=== PATIENT | female | born 1990 | race Caucasian/White ===

== ENCOUNTER 2016-08-21 21:50 | Emergency (ER) | payer OTHER ==
[~2016-08-21] VITALS: Ht 160 cm; Wt 70.1 kg
[~2016-08-21 21:50] MED LIST: ANTABUSE250 MG PO; BUSPAR10 MG PO; CHLORASEPTIC177 ML MM; DIFLUCAN150 MG PO; IRON18 MG PO; LAMICTAL25 MG PO; LEXAPRO20 MG PO; LIBRIUM25 MG PO; MUCINEX600 MG PO; MULTIVITAMIN1 EAC2 PO; PROBIOTIC1 EAC1 PO; PROPRANOLOL HCL10 MG PO; PROZAC20 MG PO; ROBITUSSIN100 MG/5 M PO; SEROQUEL100 MG PO; STRATTERA60 MG PO; TRAZODONE HCL150 MG PO; TRAZODONE HCL50 MG PO; VYVANSE60 MG PO; ZITHROMAX Z-PA250 MG PO; ZOFRAN ODT4 MG PO
[2016-08-21 22:46] LABS: HEMATOCRIT 38.3 % (36.0-46.0); MCH 31.5 PG (29.0-34.0); MCHC 33.7 G/DL (30.0-36.0); MCV 93.6 FL (83-99); MEAN PLAT.VOLUME 9.2 uM^3 (9.5-12.4); PLATELET COUNT 284 K/uL (156-360); RBC DIS.WIDTH-CV 11.9 % (11.8-14.6); RBC DIS.WIDTH-SD 39.8 % (39-53); RED BLOOD COUNT 4.09 M/uL (3.80-5.20); WHITE BLOOD COUNT 6.7 K/uL (4.1-10.2)
[2016-08-21 22:59] LABS: CHLORIDE 106 mEq/L (99-109); POTASSIUM 4.1 mEq/L (3.7-5.4); SODIUM 140 mEq/L (136-147)
[2016-08-21 23:01] LABS: GLUCOSE 108 mg/dL (70-99)
[2016-08-21 23:02] LABS: ANION GAP 10 MEQ/L (2-14)
[2016-08-21 23:04] LABS: GFR ESTIMATE (CALCULATED) > 59 mL/min/; SERUM ETHYL ALCOHOL < 10 mg/dL
[2016-08-21 23:06] LABS: UREA NITROGEN (BUN) 15 mg/dL (9-23)
[2016-08-21 23:08] LABS: SALICYLATE < 5.0 MG/DL (15-30)
[2016-08-21 23:10] LABS: ADD MIUA? YES; BILIRUBIN NEGATIVE; BLOOD NEGATIVE; COLOR YELLOW ((YELLOW)); GLUCOSE (STRIP) NEGATIVE; KETONES NEGATIVE; LEUKOCYTES MODERATE; NITRITE NEGATIVE; PROTEIN (STRIP) NEGATIVE; SPECIFIC GRAVITY 1.016 (1.000-1.030); UROBILINOGEN 0.2 MG/DL (0.2-1.0)
[2016-08-21 23:15] LABS: QUANTITATIVE HCG < 4.0 MIU/ML
[2016-08-21 23:23] LABS: AMPHETAMINE PRESUMPTIVE POSITIVE (500 ng/mL); COCAINE NEGATIVE (150 ng/mL); METHAMPHETAMINE NEGATIVE (500 ng/mL); OPIATES (MORPHINE) NEGATIVE (100 ng/mL); PHENCYCLIDINE NEGATIVE (25 ng/mL); THC CANNABINOIDS NEGATIVE (50 ng/mL)
[2016-08-21 23:24] LABS: ADD MEDTOX COMMENT Y; BARBITURATES NEGATIVE (200 ng/mL); BENZODIAZEPINES NEGATIVE (150 ng/mL); INTERNAL CONTROLS VALID? YES; METHADONE NEGATIVE (200 ng/mL); OXYCODONE NEGATIVE (100 ng/mL); PROPOXYPHENE NEGATIVE (300 ng/mL); TRICYCLIC ANTIDEPRESSANTS NEGATIVE (300 ng/mL)
[2016-08-21 23:37] LABS: BACTERIA RARE /HPF; EPITHELIAL CELLS 2+ /HPF; MUCUS NONE SEEN /LPF; RED BLOOD CELLS 0-5 /HPF (0-5); UCUL ADDED? NO; WHITE BLOOD CELLS 0-5 /HPF (0-5)
[2016-08-22] MEDS ORDERED: BUPROPION HCL150 M2 PO (00:27)
[2016-08-22 01:16] VITALS: BP 142/93
== END 2016-08-22 01:17 | disposition home or self-care (01) ==
LOC: EME 21:50
DX: F32.9 Major depressive disorder, single episode, unspecified (principal); T48.3X1A Poisoning by antitussives, accidental (unintentional), initial encounter; F41.1 Generalized anxiety disorder; F50.2 Bulimia nervosa; F90.2 Attention-deficit hyperactivity disorder, combined type; Z72.0 Tobacco use
CPT/HCPCS: 80048; 81003; 84702; 84999; 85027; 90839; 93005; 99281; 99284; G0480

== ENCOUNTER 2016-10-22 03:31 | Emergency (ER) | payer OTHER ==
[~2016-10-22] VITALS: Ht 160 cm; Wt 75.2 kg
[~2016-10-22 03:31] MED LIST changes: +BUPROPION HCL150 M2 PO
[2016-10-22] MEDS ORDERED: ZOFRAN4 MG PO (03:53)
[2016-10-22 04:26] LABS: HEMATOCRIT 35.9 % (36.0-46.0); MCH 30.9 PG (29.0-34.0); MCHC 33.7 G/DL (30.0-36.0); MCV 91.6 FL (83-99); MEAN PLAT.VOLUME 8.9 uM^3 (9.5-12.4); PLATELET COUNT 269 K/uL (156-360); RBC DIS.WIDTH-CV 11.9 % (11.8-14.6); RBC DIS.WIDTH-SD 39.7 % (39-53); RED BLOOD COUNT 3.92 M/uL (3.80-5.20); WHITE BLOOD COUNT 10.1 K/uL (4.1-10.2)
[2016-10-22 04:36] LABS: CHLORIDE 105 mEq/L (99-109); POTASSIUM 4.2 mEq/L (3.7-5.4); SODIUM 138 mEq/L (136-147)
[2016-10-22 04:39] LABS: GLUCOSE 131 mg/dL (70-99)
[2016-10-22 04:40] LABS: ANION GAP 10 MEQ/L (2-14); TOTAL BILIRUBIN 0.3 mg/dL (0.0-1.0)
[2016-10-22 04:42] LABS: ALKALINE PHOSPHATASE 64 IU/L (3-129); GFR ESTIMATE (CALCULATED) > 59 mL/min/
[2016-10-22 04:43] LABS: UREA NITROGEN (BUN) 21 mg/dL (9-23)
[2016-10-22 04:57] VITALS: BP 125/82
[2016-10-23] MEDS ORDERED: LIBRIUM25 MG PO (18:07)
[2016-10-23] MEDS ORDERED: THIAMINE HCL100 MG PO (18:07)
[2016-10-23] MEDS ORDERED: ZITHROMAX Z-PA250 MG PO (18:07)
== END 2016-10-22 04:58 | disposition home or self-care (01) ==
LOC: EME 03:31
PROVIDERS: Emergency Medicine
DX: T50.6X5A Adverse effect of antidotes and chelating agents, initial encounter (principal); R11.10 Vomiting, unspecified; R51 Headache; F10.20 Alcohol dependence, uncomplicated; Z72.0 Tobacco use; I10 Essential (primary) hypertension
CPT/HCPCS: 80053; 85027; 93005; 99281; 99283; J1885

== ENCOUNTER 2016-10-23 14:09 | Emergency (ER) | payer OTHER ==
[~2016-10-23] VITALS: Ht 160 cm; Wt 73.5 kg
[~2016-10-23 14:09] MED LIST changes: +ZOFRAN4 MG PO
[2016-10-23 15:57] LABS: EOSINOPHIL (%) 0.1 % (0-5); HEMATOCRIT 37.1 % (36.0-46.0); IMMATURE GRANULOCYTE (%) 0.5 % (0.0-0.7); IMMATURE GRANULOCYTE COUNT 0.1 K/uL; INSTRUMENT ABS NEUTROPHIL CT 11.5 K/uL; MCH 31.3 PG (29.0-34.0); MCV 92.3 FL (83-99); MEAN PLAT.VOLUME 8.8 uM^3 (9.5-12.4); MONOCYTE (%) 3.1 % (3-12); MONOCYTE COUNT 0.4 K/uL (0-0.8); NEUTROPHIL (%) 88.6 % (45-76); NEUTROPHIL COUNT 11.5 K/uL (1.8-6.4); PLATELET COUNT 250 K/uL (156-360); RBC DIS.WIDTH-CV 12.1 % (11.8-14.6); RBC DIS.WIDTH-SD 41.1 % (39-53); RED BLOOD COUNT 4.02 M/uL (3.80-5.20)
[2016-10-23 16:06] LABS: CHLORIDE 106 mEq/L (99-109); POTASSIUM 3.6 mEq/L (3.7-5.4); SODIUM 141 mEq/L (136-147)
[2016-10-23 16:08] LABS: GLUCOSE 110 mg/dL (70-99)
[2016-10-23 16:09] LABS: ANION GAP 12 MEQ/L (2-14)
[2016-10-23 16:11] LABS: SERUM ETHYL ALCOHOL 108 mg/dL
[2016-10-23 16:12] LABS: GFR ESTIMATE (CALCULATED) > 59 mL/min/; UREA NITROGEN (BUN) 21 mg/dL (9-23)
[2016-10-23 16:20] LABS: QUANTITATIVE HCG < 4.0 MIU/ML
[2016-10-23 17:40] LABS: ADD MIUA? YES; BILIRUBIN NEGATIVE; BLOOD NEGATIVE; COLOR YELLOW ((YELLOW)); GLUCOSE (STRIP) NEGATIVE; KETONES 5; LEUKOCYTES LARGE; NITRITE NEGATIVE; PROTEIN (STRIP) NEGATIVE; SPECIFIC GRAVITY 1.011 (1.000-1.030); UROBILINOGEN 0.2 MG/DL (0.2-1.0)
[2016-10-23] MEDS ORDERED: THIAMINE HCL100 MG PO (18:07)
[2016-10-23] MEDS ORDERED: ZITHROMAX Z-PA250 MG PO (18:07)
[2016-10-23] MEDS ORDERED: LIBRIUM25 MG PO (18:07)
[2016-10-23 18:14] LABS: ADD MEDTOX COMMENT Y; AMPHETAMINE PRESUMPTIVE POSITIVE (500 ng/mL); BARBITURATES NEGATIVE (200 ng/mL); BENZODIAZEPINES PRESUMPTIVE POSITIVE (150 ng/mL); COCAINE NEGATIVE (150 ng/mL); INTERNAL CONTROLS VALID? YES; METHADONE NEGATIVE (200 ng/mL); METHAMPHETAMINE NEGATIVE (500 ng/mL); OPIATES (MORPHINE) NEGATIVE (100 ng/mL); OXYCODONE NEGATIVE (100 ng/mL); PHENCYCLIDINE NEGATIVE (25 ng/mL); PROPOXYPHENE NEGATIVE (300 ng/mL); THC CANNABINOIDS NEGATIVE (50 ng/mL); TRICYCLIC ANTIDEPRESSANTS NEGATIVE (300 ng/mL)
[2016-10-23 18:23] LABS: BACTERIA RARE /HPF; EPITHELIAL CELLS 1+ /HPF; HYALINE CASTS 0-5 /LPF; MUCUS NONE SEEN /LPF; RED BLOOD CELLS 0-5 /HPF (0-5); WHITE BLOOD CELLS 0-5 /HPF (0-5)
[2016-10-23 18:47] LABS: BENZODIAZEPINES QUANT VALUE 0 NG/ML
[2016-10-23 18:59] VITALS: BP 106/85
[2016-10-23 19:02] LABS: BENZODIAZEPINES, URINE SCREEN Negative (200 ng/mL)
== END 2016-10-23 19:00 | disposition home or self-care (01) ==
LOC: EME 14:09
PROVIDERS: Emergency Medicine
DX: F10.20 Alcohol dependence, uncomplicated (principal); Y90.5 Blood alcohol level of 100-119 mg/100 ml; J20.9 Acute bronchitis, unspecified; F31.32 Bipolar disorder, current episode depressed, moderate; R11.10 Vomiting, unspecified; F17.200 Nicotine dependence, unspecified, uncomplicated
CPT/HCPCS: 71010; 80048; 81003; 84702; 84999; 85025; 90839; 93005; 99281; 99285; G0480; J2060; J7030